=== PATIENT | female | born 1945 | race Two or more races ===

== ENCOUNTER 2017-03-29 15:21 | Emergency (ER) | payer OTHER, MEDICAID ==
[~2017-03-29] VITALS: Ht 157.5 cm; Wt 61.2 kg
--- NOTE | 2017-03-29 15:40 | NUR ---
[id number], [id number] FROM HOME C/O FEELING WEAK, COUGH X TUESDAY FEBRILE 102.7F. RR IS EVEN AND UNLABORED WITH NAD NOTED. SKIN IS WARM AND DRY. PLACED ON MONITOR. WILL CONTINUOUSLY MONITOR THE PATIENT. AWAITING MD FOR EVAL.
[2017-03-29] MEDS ORDERED: IV NS 0.9% 1,000 ML BAG IV ONE ×2 (16:00→18:30)
[2017-03-29 16:25] LABS: BASOPHILS # (AUTO) 0.1 /CMM (0.0-0.2); BASOPHILS % (AUTO) 1.1 % (0.0-2.0); EOSINOPHILS % (AUTO) 0.1 % (0.0-6.0); HEMATOCRIT 42 % (33-45); HEMOGLOBIN 14.3 g/dL (11.5-14.8); LYMPHOCYTES # (AUTO) 0.6 /CMM (0.8-4.8); MEAN CORPUSCULAR HEMOGLOBIN 29 PG (26.0-33.0); MEAN CORPUSCULAR HGB CONC 34 g/dl (31.0-36.0); MEAN CORPUSCULAR VOLUME 85 fL (82-100); MONOCYTES # (AUTO) 0.7 /CMM (0.1-1.30); MONOCYTES % (AUTO) 6.8 % (2.0-12.0); NEUTROPHILS # (AUTO) 8.8 /CMM (1.8-8.9); PLATELET COUNT (AUTO) 130 /CMM (150-450); RDW COEFFICIENT OF VARIATION 13.7 (11.5-15.0); RED BLOOD CELL COUNT(AUTO) 4.95 MIL/uL (4.0-5.2); WHITE BLOOD COUNT (AUTO) 10.2 K/uL (4.3-11.0)
[2017-03-29 16:40] LABS: INR 0.98 (0.87-1.13); PROTHROMBIN TIME 10.2 SECS (9.5-12.7)
[2017-03-29 16:43] LABS: ALANINE AMINOTRANSFERASE 35 U/L (12-78); ALBUMIN 3.3 g/dL (3.4-5.0); ALKALINE PHOSPHATASE 88 U/L (46-116); ASPARTATE AMINOTRANSFERASE 115 U/L (15-37); BILIRUBIN,DIRECT 0.1 mg/dL (0.0-0.2); BILIRUBIN,TOTAL 0.3 mg/dL (0.2-1.0); CALCIUM, SERUM 8.6 mg/dL (8.5-10.1); CARBON DIOXIDE 25 mmol/L (21-32); CHLORIDE 96 mmol/L (98-107); GLUCOSE 271 mg/dL (74-106); POTASSIUM 3.1 mmol/L (3.5-5.1); SODIUM SERUM 131 mmol/L (136-145); TOTAL PROTEIN, SERUM 7.1 g/dL (6.4-8.2); TROPONIN I 0.106 ng/mL (0.00-0.056); UREA NITROGEN, BLOOD 16 mg/dL (7-18)
--- NOTE | 2017-03-29 17:06 | NUR ---
CALLED NURSING SUP. FOR TELE BED
--- NOTE | 2017-03-29 18:02 | NUR ---
PATIENT'S SON GERBER SILVA , CALL FOR ANY UPDATES. OR CALL
[2017-03-29] MEDS ORDERED: CEFTRIAXONE 1GM BAG (ER ONLY) 50 ML IV ONE (18:30)
--- NOTE | 2017-03-29 18:33 | NUR ---
CALLED [facility], PRESENTED PT, AWAITING CALL BACK FROM [facility]
[2017-03-29] MEDS ORDERED: CEFTRIAXONE 1 G VIAL ONE (18:47)
[2017-03-29] MEDS ORDERED: POTASSIUM CHLORIDE 20 MEQ TAB.PRT.SR PO ONE ×2 (18:48→19:00)
[2017-03-29] MEDS ORDERED: ACETAMINOPHEN ES 500 MG TABLET ONE (18:48)
[2017-03-29] MEDS ORDERED: ASPIRIN EC 81 MG TABLET.DR PO ONE (19:00)
[2017-03-29] MEDS ORDERED: ASPIRIN 81 MG TAB.CHEW PO ONE (19:00)
[2017-03-29] MEDS ORDERED: ACETAMINOPHEN ES 500 MG TABLET PO ONE (19:00)
--- NOTE | 2017-03-29 19:11 | NUR ---
ASSUMED CARE: PT A/O X 3, BREATHING EVEN/UNLABORED, NSR ON [employer], STEVEN WARM/DRY, FAMILY IS BEDSIDE, PT UPDATED ON PLAN OF CARE.
--- NOTE | 2017-03-29 19:26 | NUR ---
GAVE REPORT TO AUSTIN ARIAS FOR [facility]
--- NOTE | 2017-03-29 19:32 | NUR ---
NAZANIN STRATTON (WILDWOOD): [phone]
[2017-03-29 19:37] LABS: APPEARANCE,URINE Clear (CLEAR); BILIRUBIN,URINE Negative (NEGATIVE); BLOOD, URINE Moderate Ery/uL (NEGATIVE); COLOR,URINE Yellow (YELLOW); KETONES,URINE 40 (NEGATIVE); LEUKOCYTE ESTERASE ,URINE Negative (NEGATIVE); NITRITE, URINE Negative (NEGATIVE); PROTEIN,URINE 100 mg/dl (NEGATIVE); UGLUCOSE 250 MG/DL mg/dL (NEGATIVE); UROBILINOGEN,URINE 0.2 EU/dL (0.2)
[2017-03-29 19:53] LABS: BACTERIA,URINE Few /HPF (None Seen); HYALINE CASTS, URINE Few /LPF (None Seen); SQUAMOUS EPITHELIAL CELL,UR Moderate /HPF (None Seen); WBC,URINE 0-2 /HPF (0-3); YEAST,URINE Few /HPF (None Seen)
[2017-03-29 19:54] LABS: MUCUS,URINE Rare /LPF (None Seen)
--- NOTE | 2017-03-29 21:06 | NUR ---
PT SLEEPING, ARROUSABLE TO VOICE, BREATHING UNLABORED, NAD NOTED
--- NOTE | 2017-03-29 22:49 | NUR ---
PATIENT ACCEPTED AT [facility] ROOM # 5301-A RN TO RN REPORT ACCEPTED BY DR [facility] ETA= "WITHIN THE HOUR" PER [facility]
--- NOTE | 2017-03-29 23:15 | NUR ---
REPORT TO JOELLEN ARIAS. ALL QUESTIONSANSWERED
[2017-03-29 23:56] VITALS: BP 128/54
== END 2017-03-30 00:12 | disposition short-term general hospital (02) ==
LOC: ER 15:25
DX: A41.9 Sepsis, unspecified organism (principal); R79.89 Other specified abnormal findings of blood chemistry; E11.9 Type 2 diabetes mellitus without complications; Z88.6 Allergy status to analgesic agent
CPT/HCPCS: 36415; 51701; 71045; 80048; 80076; 81001; 83605; 84484; 85025; 85730; 87040 ×2; 87081; 87086; 87804; 93005; 96361; 96365; 99285; A4606; J0696; J7030; 81000-TC; 87400; Z7610